=== PATIENT | male | born 2000 | race Caucasian/White ===

== ENCOUNTER 2022-11-16 10:21 | Emergency (ER) | payer BC, SELFPAY ==
--- NOTE | ~2022-11-16 | XR_ITS ---
EXAMINATION: XR forearm LT 2V, XR hand LT min 3V DATE: 11/16/2022 11:16 INDICATION: Abrasion to the left hand and forearm after arm went through glass. TECHNIQUE: 1. AP an lateral views of the affected forearm were obtained. 2. Dorsal palmar, oblique and lateral views of the left hand were obtained. COMPARISON: none FINDINGS: Bone alignment is normal. No fracture. Joint spaces are normal. No elbow joint effusion. Soft tissues are unremarkable with no evident radiopaque foreign bodies. IMPRESSION: 1. Negative left hand and forearm radiographs. Reviewed, dictated and finalized at location A. IMPRESSION: 1. Negative left hand and forearm radiographs.
[2022-11-16 10:27] VITALS: BP 112/62; PULSE 76; RESP 16; TEMP 36.4; O2SAT 99
--- NOTE | 2022-11-16 10:54 | PC.NURSE ---
pt sts that last tuesday he got mad and punched a window. old scabs noted with yellow discharge. pt sts that he just rinsed off his arm. skin is warm, and red to touch
[2022-11-16] MEDS: NAPROXEN 500 MG TABLET PO (11:28)
[2022-11-16] MEDS: TETANUS,DIPHTHERIA,AC PERTUSSIS ADULT (0.5 ML) BOOSTRIX IM (11:29)
[2022-11-16 11:30] VITALS: BP 121/73; PULSE 68; RESP 18; TEMP 37.1
[2022-11-16] MEDS: ACETAMINOPHEN 500 MG TABLET 1000 MG PO (11:30)
--- NOTE | 2022-11-16 11:52 | ED.GENADULT ---
HPI - General Adult General Chief complaint: Wound/Laceration Stated complaint: L FOREARM THRU BROKEN GLASS Time Seen by Provider: 11/16/22 10:44 History of Present Illness HPI narrative: Isidro Donald is a 22 y/o male who states that he punched a window with his left arm 3 days ago. He reports that it was out of frustration and was not trying to harm himself. Several superficial lacerations noted to left forearm and left hand. No obvious deformity noted. Full ROM to left forearm noted. Related Data Allergies Allergy/AdvReac Type Severity Reaction Status Date / Time cefaclor [From [facility]] Allergy Rash Verified 11/16/22 10:29 Review of Systems Review of Systems: CONSTITUTIONAL: Denies fever, chills, or sweats. EYES: Denies visual changes, redness, or discharge. ENT: Denies rhinorrhea, congestion, sore throat, or otalgia. CARDIOVASCULAR: Denies chest pain, palpitations, or edema. RESPIRATORY: Denies cough or dyspnea. GASTROINTESTINAL: Denies abdominal pain, nausea, vomiting, or diarrhea. GENITOURINARY: Denies dysuria or hematuria. SKIN: Denies rash or itching. MUSCULOSKELETAL: Pain from lacerations to right forearm / right hand. NEUROLOGIC: Denies headache, numbness, dizziness, or weakness. PSYCHIATRIC: Denies anxiety or depression. She does not Exam Narrative: GENERAL: Well-appearing, well-nourished, and in no acute distress. HEAD: Normocephalic, atraumatic. EYES: PERRLA and EOMI. ENT: Nares clear, no rhinorrhea or epistaxis. Mucous membranes moist. Oropharynx without tonsillar hypertrophy exudate or other lesions. NECK: Supple. No adenopathy or masses. No carotid bruits or JVD CHEST: Clear to auscultation. No respiratory distress. No wheezes rales or rhonchi HEART: Regular rate and rhythm. No murmur heard. Normal peripheral pulses. ABDOMEN: Soft, nontender, nondistended, normal active bowel sounds. EXTREMITIES: Normal range of motion. No edema. Lacerations noted to right forearm and right hand , no active bleeding appears to be healing. SKIN: Warm, dry, no rash. NEURO: No focal deficits. Alert and oriented x3. PSYCH: Normal mood and affect. Course Vital Signs Vital signs: Vital Signs Temperature 36.4 C L 11/16/22 10:27 Pulse Rate 76 11/16/22 10:27 Respiratory Rate 16 11/16/22 10:27 Blood Pressure 112/62 11/16/22 10:27 Pulse Oximetry 99 11/16/22 10:27 Temperature 36.9 C 11/16/22 13:14 Pulse Rate 65 11/16/22 13:14 Respiratory Rate 18 11/16/22 13:14 Blood Pressure 124/73 11/16/22 13:14 Pulse Oximetry 98 11/16/22 13:14 Vitals reviewed by me. Medical Decision Making MDM Narrative Medical decision making narrative: Laceration noted to right forearm, right hand Bleeding controlled Appears to be scabbing over and dry Slight pink/ erythema around lacerations No drainage/ concern for infection Plan to cleanse and dress wounds/ and updated TDap Discussed plan with pt and he is agreeable X rays are negative for fracture/foreign bodies Thoroughly cleansed wounds, applying bacitracin with dressing Patient given instructions to continue wound care and to return for any signs of infection or concerns. Patient verbalizes understanding and all questions answered. Differential Diagnosis Differential Diagnosis: Foreign body/ infection / left arm fracture / left hand fracture Vital Signs Vital Signs: Vital Signs Temperature 36.4 C L 11/16/22 10:27 Pulse Rate 76 11/16/22 10:27 Respiratory Rate 16 11/16/22 10:27 Blood Pressure 112/62 11/16/22 10:27 Pulse Oximetry 99 11/16/22 10:27 Temperature 36.9 C 11/16/22 13:14 Pulse Rate 65 11/16/22 13:14 Respiratory Rate 18 11/16/22 13:14 Blood Pressure 124/73 11/16/22 13:14 Pulse Oximetry 98 11/16/22 13:14 vitals reviewed by me. Imaging Data Attestation: I personally reviewed and interpreted this imaging study as follows: My impression: Impressions Forearm X-Ra
[2022-11-16] MEDS: BACITRACIN OINTMENT 15 GM TUBE 1 APPLIC TOPICAL (13:09)
[2022-11-16 13:14] VITALS: BP 124/73; PULSE 65; RESP 18; TEMP 36.9; O2SAT 98
== END 2022-11-16 13:52 | disposition home or self-care (01) ==
PROVIDERS: Emergency Provider Nurse Practitioner Family
DX: S51.812A Laceration without foreign body of left forearm, initial encounter (principal); Z23 Encounter for immunization; W25.XXXA Contact with sharp glass, initial encounter
CPT/HCPCS: 73090; 73130; 90715; 99283; A9270

== ENCOUNTER 2024-09-26 10:17 | Emergency (ER) | payer OTHER, SELFPAY ==
[2024-09-26 10:18] VITALS: BP 148/81; PULSE 75; RESP 18; TEMP 36.4; O2SAT 100
--- OUTSIDE RECORDS SUMMARY | 2024-09-26 11:01 | XMS_ITS | Patient Health Record ---
Author Organization [facility] Address [address] [place] [address] Care Team Providers Care Recreation Therapy Director Name Role Phone Abbey Alvarenga Primary Care Provider Promise Scott Unavailable [phone] Reason For Referral No Information Medications Medication SIG (Take, Route, Frequency, Duration) Notes Start Date End Date Status predniSONE 20 MG take 2 tablet by ora l route every day for 5 days in the morning Oral ([facility]) 03/06/2014 Active ProAir HFA 108 (90 Base) MCG/ACT first 48 hours use 2 puffs every 4 hours. then inhale 2 puffs every 4 - 6 hours as needed Inhalation ([facility]) 03/06/2014 Active Immunizations Vaccine Route Administration Date Status Comme nts Influenza (split) 3 yrs and above Unknown 04/07/2010 Administered Status:Completed Non VFC Engerix B-Peds Unknown 1998 Administered Status:Completed Non VFC Engerix B-Peds Unknown 1998 Administered Status:Completed Non VFC Engerix B-Peds Unknown 05/26/1999 Administered Status:Completed Non VFC Havrix-Peds Unknown 12/10/2009 Administered Sta tus:Completed Non VFC Havrix-Peds Unknown 11/29/2013 Administered Sta tus:Completed Non-VFC MMR II Unknown 04/01/2000 Administered Status:C ompleted Non-VFC MMR II Unknown 12/09/2003 Administered Status:C ompleted Non-VFC MMR II Unknown 01/03/2013 Administered Status:C ancelled VFC Boostrix Unknown 12/10/2009 Administered Status:Com pleted VFC Boostrix Unknown 12/09/2010 Administered Status:Com pleted VFC Daptacel Unknown 1998 Administered Status:Com pleted VFC Daptacel Unknown 03/24/1999 Administered Status:Com pleted VFC Daptacel Unknown 05/26/1999 Administered Status:Com pleted VFC Daptacel Unknown 04/29/2000 Administered Status:Com pleted VFC Daptacel Unknown 12/09/2003 Administered Status:Com pleted VFC Gardasil Unknown 12/10/2009 Administered Status:Com pleted VFC Gardasil Unknown 11/29/2013 Administered Status:Com pleted VFC Gardasil Intramuscular 02/20/2014 Administered Status: Completed VFC IPV Unknown 1998 Administered Status:Compl eted VFC IPV Unknown 03/24/1999 Administered Status:Compl eted VFC IPV Unknown 04/29/2000 Administered Status:Compl eted VFC IPV Unknown 12/09/2003 Administered Status:Compl eted VFC IPV Unknown 12/10/2009 Administered Status:Compl eted VFC Menactra Unknown 12/10/2009 Administered Status:Com pleted VFC Menactra Unknown 12/09/2010 Administered Status:Com pleted VFC Proquad Unknown 01/03/2013 Administered Status:Comp leted VFC Varivax Unknown 04/01/2000 Administered Status:Comp leted VFC Varivax Unknown 12/10/2009 Administered Status:Comp leted VFC Varivax Unknown 01/03/2013 Administered Status:Canc elled X Hiberix Unknown 1998 Administered Status:Compl eted X Hiberix Unknown 03/24/1999 Administered Status:Compl eted X Hiberix Unknown 05/26/1999 Administered Status:Compl eted X Hiberix Unknown 04/01/2000 Administered Status:Compl eted Problems Problem Type SNOMED Code ICD Code Onset Dates Problem Status W/U Status Risk Notes Problem Asthma without status asthmaticus (28542708) Asthma, unspecified, unspecified status (493.90) 1 Active confirmed ([facility] ) Added By: Jaylin Ybarra Plan Of Treatment No Information Insurance Providers Payer Name Payer Address Payer Phone Subscriber Number Group Number Insured Name Patient Relationship to Insured Coverage Start Date Coverage End Date Medicaid [employer] [address] [id number] Isidro Donald Self - patient is the insured 0 Medicaid FFS [address] [place] [address] [id number] Isidro Donald Self - patient is the insured 0 Medical (General) History Surgical History Surgery Date(Month/Year) [facility] 2012 sutures 2013
--- NOTE | 2024-09-26 11:56 | PC.NURSE ---
visual acuity supplies placed in patients room at this time
--- NOTE | 2024-09-26 11:57 | ED_ITS ---
HPI - Eye Problem General Chief complaint: Eye Problems Stated complaint: battery acid in eye Time Seen by Provider: 09/26/24 10:59 History of Present Illness HPI Narrative: 23-year-old otherwise healthy male presenting to the emergency department for right eye pain after battery acid exposure. 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 He was working on it and knows that he got some acid on his hands and rubbed his e ye specifically the right eye. Knows that he had sudden onset vision loss in his right eye and went to go irrigated. States that he irrigated for 30 minutes at the eye wash station with saline. Vision had returned and now at baseline without any blurriness or discoloration, no visual deficits. He states that the eye hurts and he has some painful sensations that go away when he closes eye or rubs at it. No headache, nausea, vomiting. No other exposure to his knowledge. No redness or purulent drainage. States he occasionally gets some tearing when he closes his eye now but no purulence. Related Data Allergies Allergy/AdvReac Type Severity Reaction Status Date / Time cefaclor (From [facility]) Allergy Rash Verified 11/16/22 10:29 Review of Systems Review of Systems: As reviewed above in HPI Exam Narrative: GENERAL: [Well-appearing, well-nourished, and in no acute distress.] HEAD: [Normocephalic, atraumatic.] EYES: [PERRLA and EOMI.] Fluorescein dye examination shows no conjunctival inflammation or signs of caustic burn. No tearing, negative Sarwat sign, no sign of foreign body when cleo in the eyelids or on the conjunctiva itself. ENT: Nares clear, no rhinorrhea or epistaxis. Mucous membranes moist. NECK: Supple. CHEST: [Clear to auscultation. No respiratory distress.] HEART: [Regular rate and rhythm]. No murmur heard. [Normal peripheral pulses.] ABDOMEN: [Soft, nondistended], [nontender], [No rigidity or guarding] EXTREMITIES: Normal range of motion. [No edema.] SKIN: Warm, dry, no rash. NEURO: [No focal deficits]. Alert and oriented [x3.] PSYCH: [Normal mood and affect.] Course Vital Signs Vital signs: Vital Signs Temperature 36.4 C 05/07/25 10:18 Pulse Rate 75 09/26/24 10:18 Respiratory Rate 18 09/26/24 10:18 Blood Pressure 148/81 H 09/26/24 10:18 Pulse Oximetry 100 09/26/24 10:18 Oxygen Delivery Room Air 09/26/24 10:18 Temperature 36.4 C 09/26/24 10:18 Pulse Rate 75 09/26/24 10:18 Respiratory Rate 18 09/26/24 10:18 Blood Pressure 148/81 H 09/26/24 10:18 Pulse Oximetry 100 09/26/24 10:18 Oxygen Delivery Room Air 09/26/24 10:18 MDM - Eye Problem MDM Narrative Medical decision making narrative: 23-year-old male presenting to the emergency department after getting battery acid into his right eye. Patient states that he initially had some very transient blindness in his right eye after rubbing it with hands that were exposed to acid. This went away almost immediately after stopping rubbing at his eye. No pain at that time and he irrigated extensively with 30 minutes of direct pressure washing with normal saline at the work site. Vision returned and he is now having no visual deficits or blurry vision. No headache or nausea. States that he gets some pain with with his eye similar to a foreign body and occasional clear tearing but no purulence. No conjunctival injection. Suspicion presently is for an alkaline versus acidic injury, epithelia injury or caustic keratoconjunctivitis. Tetracaine drops were given as well as fluorescein dye. Fluorescein dye examination shows no conjunctival inflammation or signs of caustic burn. No tearing, negative Sarwat sign, no sign of foreign body when cleo in the eyelids or on the conjunctiva itself. Patient's tetanus was upd ated here in the emergency department he was given erythromycin topical ointments as well as artificial tears and instructions on how to use this. He was given ophthalmology referral follow-up instructions and safely discharged home at this time with strict return precautions and instructions to call the ophthalmology clinic in the morning. Patient verbalized understanding the instructions and safely discharged home at this time. Medical Records Attestation: I reviewed the patient's medical records. Discharge Plan Discharge Clinical Impression: Occupational exposure to chemicals, Pain, eye, right Patient Disposition: Home Condition: Stable Instructions: Antibiotic Form Additional Instructions: Your examination does not show any signs of significant conjunctival injury or ocular injury otherwise. We will send you home with erythromycin and topical eyedrops given the history of chemical exposure. No need for further irrigation at this time but you do need to see an activated sludge attendant on a short-term basis. Call the provided clinic for a walk-in appointment ideally tomorrow or the day following. Return with any emergent concerns such as vision loss, worsening pain in the eye, purulent drainage, fever or any other concerns. Patient Language: [place]an Prescriptions: New artificial tears(hypromellose) 0.3 % drops 1 drp EACH EYE TID PRN (Reason: dry eyes) Qty: 15 0RF erythromycin 5 mg/gram (0.5 %) ointment 1 applic RIGHT EYE QID Qty: 3.5 0RF No Action bacitracin zinc-polymyxin B [Poly Bacitracin (zinc)] 500-10,000 unit/gram ointment 1 applic topical BID Qty: 28.3 0RF Rx Instructions: apply to lacerations after cleansing twice daily for 1 week Follow-up/Referrals: Opthalmology [Other] - 1 Day (Ocular chemical exposure. ER follow up) UNKNOWN,DOCTOR [Primary Care Provider] - Time of Disposition: 14:05
[2024-09-26] MEDS: TETANUS,DIPHTHERIA,AC PERTUSSIS ADULT (0.5 ML) BOOSTRIX IM (14:14)
[2024-09-26] MEDS: ERYTHROMYCIN OPHTH OINTMENT 1 GM TUBE 1 APPLIC RIGHT EYE (14:19)
[2024-09-26 14:22] VITALS: BP 130/64; PULSE 76; RESP 16; TEMP 36.9; O2SAT 100
== END 2024-09-26 14:24 | disposition home or self-care (01) ==
PROVIDERS: Emergency Provider Student in an Organized Health Care Education/Training Program
DX: T54.2X1A Toxic effect of corrosive acids and acid-like substances, accidental (unintentional), initial encounter (principal); H57.11 Ocular pain, right eye; Z23 Encounter for immunization
CPT/HCPCS: 90471; 90715; 99283; A9270